=== PATIENT | male | born 1990 | race Caucasian/White ===

== ENCOUNTER 2020-03-30 23:37 | Emergency (ER) | payer MEDICAID, OTHER ==
[~2020-03-30] VITALS: Ht 182.9 cm; Wt 127.0 kg
--- NOTE | 2020-03-30 23:59 | NUR ---
PATIENT CAME TO ER BED 9 C/O BILATERAL LEG PAIN THAT HAS BEEN ONGOING FOR A WEEK. PATIENT STATES THAT HE WAS STANDING FOR A VERY LONG TIME. ADMITS TO SMOKING FENTANYL YESTERDAY. C/O OF SPITTING OUT PHLEGM. PATIENT IS AAOX4. NO SOB. BREATHING EVENLY AND UNLABORED ON ROOM AIR.
--- NOTE | 2020-03-31 00:05 | NUR ---
BOBBIN FIXER AT BEDSIDE FOR BLOOD DRAW
[2020-03-31 00:57] LABS: BASOPHILS # (AUTO) 0.1 /CMM (0.0-0.2); BASOPHILS % (AUTO) 0.8 % (0.0-2.0); EOSINOPHILS % (AUTO) 2.7 % (0.0-6.0); HEMATOCRIT 38 % (39-51); HEMOGLOBIN 13.2 g/dL (13.5-17.5); LYMPHOCYTES # (AUTO) 2.4 /CMM (0.8-4.8); LYMPHOCYTES % (AUTO) 27.9 % (20.0-44.0); MEAN CORPUSCULAR HGB CONC 35 g/dl (31.0-36.0); MEAN CORPUSCULAR VOLUME 91 fL (80-96); MONOCYTES # (AUTO) 0.4 /CMM (0.1-1.30); MONOCYTES % (AUTO) 4.8 % (2.0-12.0); NEUTROPHILS # (AUTO) 5.4 /CMM (1.8-8.9); NEUTROPHILS % (AUTO) 63.8 % (43.0-81.0); PLATELET COUNT (AUTO) 241 /CMM (150-450); RED BLOOD CELL COUNT(AUTO) 4.17 MIL/uL (4.5-6.0); WHITE BLOOD COUNT (AUTO) 8.5 K/uL (4.3-11.0)
[2020-03-31 01:46] LABS: ALANINE AMINOTRANSFERASE 43 U/L (12-78); ALBUMIN 3.7 g/dL (3.4-5.0); ALCOHOL, BLOOD < 3 mg/dL (0-0); ALKALINE PHOSPHATASE 102 U/L (46-116); ASPARTATE AMINOTRANSFERASE 25 U/L (15-37); BILIRUBIN,DIRECT 0.1 mg/dL (0.0-0.2); BILIRUBIN,TOTAL 0.3 mg/dL (0.2-1.0); CALCIUM, SERUM 8.8 mg/dL (8.5-10.1); CARBON DIOXIDE 31 mmol/L (21-32); CHLORIDE 101 mmol/L (98-107); CREATININE 0.8 mg/dL (0.6-1.3); GLUCOSE 87 mg/dL (74-106); POTASSIUM 3.5 mmol/L (3.5-5.1); SODIUM SERUM 140 mmol/L (136-145); TOTAL PROTEIN, SERUM 7.3 g/dL (6.4-8.2); UREA NITROGEN, BLOOD 9 mg/dL (7-18)
[2020-03-31 01:53] LABS: ACETAMINOPHEN 0 ug/ml (10-30); SALICYLATE 2.3 mg/dL (2.8-20.0)
--- NOTE | 2020-03-31 02:22 | NUR ---
Patient discharged to home in stable condition. Written and verbal after care instructions given. Patient verbalizes understanding of instruction.
[2020-03-31 02:33] VITALS: BP 133/75
[2020-03-31 02:59] LABS: APPEARANCE,URINE CLOUDY (CLEAR); BILIRUBIN,URINE NEGATIVE (NEGATIVE); BLOOD, URINE NEGATIVE Ery/uL (NEGATIVE); COLOR,URINE YELLOW (YELLOW); KETONES,URINE NEGATIVE (NEGATIVE); LEUKOCYTE ESTERASE ,URINE NEGATIVE (NEGATIVE); NITRITE, URINE NEGATIVE (NEGATIVE); PROTEIN,URINE NEGATIVE (NEGATIVE); UGLUCOSE NEGATIVE (NEGATIVE); UROBILINOGEN,URINE 0.2 EU/dL (0.2)
[2020-03-31 03:02] LABS: BACTERIA,URINE Few /HPF (None Seen); RBC,URINE 0-2 /HPF (0-2); SQUAMOUS EPITHELIAL CELL,UR Rare /HPF (None Seen); URINE AMORPHOUS PHOSPHATES Many /HPF (None Seen)
== END 2020-03-31 02:40 | disposition home or self-care (01) ==
LOC: ER 23:41
DX: R60.0 Localized edema (principal)
CPT/HCPCS: 36415; 80048; 80076; 80305; 80307; 80329; 81001; 83880; 85025; 87086; 99283; G0480; 81000-TC

== ENCOUNTER 2022-04-25 16:28 | Emergency (ER) | payer MEDICAID ==
[~2022-04-25] VITALS: Ht 182.9 cm; Wt 116.1 kg
[2022-04-25 16:41] VITALS: BP 150/99
--- NOTE | 2022-04-25 17:03 | NUR ---
COOPERATIVE MANAGER W/ PT FOR XRAY
[2022-04-25] MEDS ORDERED: IBUP-1953 PO (17:40)
[2022-04-25] MEDS ORDERED: TERB250T52 PO (17:40)
--- NOTE | 2022-04-25 18:17 | NUR ---
CALLED RADIOLOGY FOR UPDATE ON RESULT
--- NOTE | 2022-04-25 18:39 | NUR ---
Patient discharged to home in stable condition. Written and verbal after care instructions given. Patient verbalizes understanding of instruction.
== END 2022-04-25 18:43 | disposition home or self-care (01) ==
LOC: ER 16:54
DX: B35.1 Tinea unguium (principal); I89.0 Lymphedema, not elsewhere classified
CPT/HCPCS: 73130-TC; 73610-TC; 73630-TC